=== PATIENT | male | born 1970 | race Caucasian/White ===

== ENCOUNTER → 2024-03-20 08:29 | Outpatient (REF) | payer OTHER, SELFPAY | LOC: RCS 08:29 | PROVIDERS: ATTENDING PHYSICIAN Nuclear Medicine Nuclear Cardiology; FAMILY PHYSICIAN Internal Medicine | DX: I10 Essential (primary) hypertension (principal); R93.1 Abnormal findings on diagnostic imaging of heart and coronary circulation; R07.89 Other chest pain; R00.2 Palpitations | CPT/HCPCS: 93017; 93350 ==

== ENCOUNTER → 2024-05-22 08:09 | Outpatient (REF) | payer OTHER, SELFPAY | LOC: RCS 08:09 | PROVIDERS: ATTENDING PHYSICIAN Nuclear Medicine Nuclear Cardiology; FAMILY PHYSICIAN Internal Medicine | DX: I10 Essential (primary) hypertension (principal); R93.1 Abnormal findings on diagnostic imaging of heart and coronary circulation; R07.89 Other chest pain; R00.2 Palpitations | CPT/HCPCS: 93306 ==